=== PATIENT | male | born 1975 | race Caucasian/White ===

== ENCOUNTER 2021-03-31 15:28 | Emergency (ER) | payer BC ==
[~2021-03-31] VITALS: Ht 182.9 cm; Wt 93.0 kg
[2021-03-31] MEDS ORDERED: TUMS200 MG (15:38)
[2021-03-31 15:47] LABS: ABSOLUTE BASOPHILS 0.1 thou/uL (0.0-0.2); ABSOLUTE EOSINOPHILS 0.3 thou/uL (0.0-0.7); ABSOLUTE LYMPHOCYTES 3.2 thou/uL (0.8-5.3); ABSOLUTE MONOCYTES 0.4 thou/uL (0.0-1.2); BASOPHILS 0.9 %; EOSINOPHILS 3.1 %; HEMATOCRIT 44.5 % (42.0-52.0); HEMOGLOBIN 15.6 gm/dL (14.0-18.0); LYMPHOCYTES 35.5 %; MCV 91.5 fL (80.0-100.0); MONOCYTES 4.9 %; MPV 7.2 fl. (7.2-11.1); NUCLEATED RBCS 0 /100WBC; PLATELET COUNT* 238 thou/uL (150-400); POLYS 55.6 %; RBC 4.87 mil/uL (4.50-6.00); RDW-CV 13.3 % (10.5-14.5); WBC 8.9 thou/uL (4.0-11.0)
[2021-03-31 15:55] LABS: CALCIUM 8.4 mg/dL (8.5-10.1); CREATININE 1.2 mg/dL (0.6-1.3); POTASSIUM 3.9 mmol/L (3.5-5.1)
[2021-03-31 15:59] LABS: ALBUMIN 3.5 g/dL (3.4-5.0); MAGNESIUM 1.7 mg/dL (1.8-2.4); TOTAL BILIRUBIN 0.5 mg/dL (<0.1-1.0); TOTAL PROTEIN 7.3 g/dL (6.4-8.2)
[2021-03-31 18:31] VITALS: BP 118/80
--- NOTE | 2021-04-01 10:27 | EKG ---
[place] [address] ELECTROCARDIOGRAM REPORT Name: ARELI MANTILLA Room: [facility]#: [id number] Admission: 03/31/21 Attend Phys: Discharge: 03/31/21 Date of : 73 Date of Service: 03/31/21 1534 Report #: [id number] THIS REPORT FOR: //name// [facility] ED Test Date: 2021-03-31 Test Time: 15:34:47 Pat Name: ARELI MANTILLA Department: Room: Gender: Housekeeper Caregiver: : 1975 Requested By: Alek Constantino Order Number: [id number] MD: Prem Rubalcava Measurements Intervals [place] Rate: 110 P: 50 [place]: 146 QRS: 80 QRSD: 91 T: 36 QT: 316 QTc: 428 Interpretive Statements Sinus tachycardia Baseline wander in lead(s) V1 No previous ECG available for comparison Electronically Signed On 04-01-2021 10:27:27 CDT by Prem Rubalcava [email or web address] <ELECTRONICALLY SIGNED> By: Prem Rubalcava MD, [facility] 04/01/21 1027 1534 1534 Prem Rubalcava MD, [facility] /EPI
== END 2021-03-31 18:32 | disposition home or self-care (01) ==
LOC: M.ERS 15:28
PROVIDERS: Emergency Medicine Emergency Medical Services
DX: R00.2 Palpitations (principal); F17.210 Nicotine dependence, cigarettes, uncomplicated